=== PATIENT | female | born 1955 | race Caucasian/White ===

== ENCOUNTER → 2016-05-02 | Outpatient (CLI) | payer BC ==
--- NOTE | 2016-05-03 11:13 | USB ---
Reason for exam: follow-up at short interval from prior study. History: Patient had first child at age 33. Family history of premenopausal breast cancer in sister at age 50. Physical Findings: Nurse Summary: bilateral nodularity, all soft, nodular, movable (nurse ts). US Breast RT Right breast ultrasound including all four quadrants, the retroareolar region and axilla demonstrates a 4 x 3 x 4mm oval, cystic lesion at 10 o'clock and a 3 x 3 x 5mm oval, cystic lesion at 10 o'clock. These results were verbally communicated with the patient and result sheet given to the patient on 05/02/16. ASSESSMENT: Benign, BI-RAD 2 RECOMMENDATION: Follow-up diagnostic mammogram of both breasts in 8 months. Ultrasound of the right breast in 8 months. Back on schedule for December 2016.
== END | disposition home or self-care (01) ==
LOC: RADUSWWP 15:32
PROVIDERS: ATTEND Obstetrics & Gynecology
DX: R92.8 Other abnormal and inconclusive findings on diagnostic imaging of breast (principal)

== ENCOUNTER → 2016-11-11 | Outpatient (CLI) | payer BC ==
--- NOTE | 2016-11-11 23:48 | MR ---
EXAMINATION TYPE: MR brain wo/w con DATE OF EXAM: 11/11/2016 COMPARISON: 10/19/2012 HISTORY: F/U MS and Meningioma TECHNIQUE: Multiplanar, multisequence images of the brain and brainstem is performed without and with IV contras t, utilizing 7.5 mL intravenous Gadavist . FINDINGS: Ventricles have normal size. There is no mass effect nor midline shift. There is no sign of intracran ial hemorrhage. There is a 1 cm focus of increased signal in the anterior left internal capsule on th e T2 and FLAIR images. There is a 1.4 cm somewhat rounded area of intermediate signal in the right la teral aspect of the sylvian fissure. This appears as an extra-axial mass. This is isointense on T2 im ages and has slight increased signal on the FLAIR images. Contrast images show a rounded 10 mm area o f enhancement associated with the mass. There is no edema in the cerebral cortex adjacent to the mass . There are numerous high signal white matter foci in the parietal lobes that measure up to 9 mm on the T2 and FLAIR images. The total number is approximately 20. There are 8 mm high signal discrete foci in the white matter medial anterior right temporal lobe and the anterior aspect left temporal lobe. T here is a subtle 4 mm focus of increased signal in the anterior right side of the medulla. There is a 3 mm focus of increased signal in the right cerebral peduncle. These lesions show no pathologic enha ncement. IMPRESSION: 10 mm enhancing mass in the lateral right sylvian fissure consistent with meningioma that is unchanged compared to old exam. Numerous white matter high signal nonenhancing foci consistent with demyelinating disease that appear unchanged compared to old exam.
== END ==
LOC: RADMRIMAIN 17:18
PROVIDERS: ATTEND Psychiatry & Neurology Neurology
DX: G93.9 Disorder of brain, unspecified (principal); R90.89 Other abnormal findings on diagnostic imaging of central nervous system
CPT/HCPCS: 70553; A9581

== ENCOUNTER → 2018-01-31 | Outpatient (CLI) | payer BC ==
--- NOTE | 2018-01-31 15:16 | BD ---
EXAMINATION TYPE: Axial Bone Density DATE OF EXAM: 01/31/2018 COMPARISON: 2009 CLINICAL HISTORY: osteoporosis Height: 5'4 1/2 Weight: 156 FRAX RISK QUESTIONS: Secondary Osteoporosis: RISK FACTORS HISTORY OF: Family History of Osteoporosis: y Postmenopausal woman: y MEDICATIONS: Additional Medications: Additional History: EXAM MEASUREMENTS: Bone mineral densitometry was performed using the [employer] System. Bone mineral density as measured about the Lumbar spine is: ----- L1-L4(G/cm2): 0.883 T Score Values are as follows: ----- L2: -2.5 ----- L3: -1.8 ----- L4: -2.5 ----- L1-L4: -2.5 Bone mineral density has: Increased 0.5% since study of: 12/15/2015 Bone mineral density about the R hip (g/cm2): 0.835 Bone mineral density about the L hip (g/cm2): 0.740 T Score values are as follows: -----R Neck: -1.5 -----L Neck: -2.1 -----R Total: -1.7 -----L Total: -2.4 Bone mineral density has: Decreased -10.6% since study of: 12/15/2015 IMPRESSION: 1. Osteoporosis of the lumbar spine. 2. Osteopenia bilateral femora. NOTE: T-SCORE=SD OF THE YOUNG ADULT MEAN.
--- NOTE | 2018-02-02 12:28 | MM ---
Reason for exam: screening (asymptomatic). Last mammogram was performed 1 year and 1 month ago. History: Patient is postmenopausal and had first child at age 33. Family history of premenopausal breast cancer in sister at age 50. Took progesterone for 4 years. Physical Findings: A clinical breast exam by your physician is recommended on an annual basis and results should be correlated with mammographic findings. MG Screening Mammo w CAD Bilateral CC and MLO view(s) were taken. XCCL view(s) were taken of the right breast. Prior study comparison: December 30, 2016, bilateral MG diagnostic mammo w CAD GRETCHEN. December 15, 2015, bilateral MG 3d screening mammo w/cad. The breast tissue is heterogeneously dense. This may lower the sensitivity of mammography. No suspicious abnormality in the left breast. Focal asymmetry of the right lower outer quadrant 3.5-4.5cm from nipple. ASSESSMENT: Incomplete: need additional imaging evaluation, BI-RAD 0 RECOMMENDATION: Special view mammogram of the right breast. If lesion persists on supplemental views, image directed ultrasound is recommended. [facility] will attempt to contact patient to return for supplemental views and ultrasound if indicated.
== END | disposition home or self-care (01) ==
LOC: RADMAMWWP 14:33
PROVIDERS: ATTEND Obstetrics & Gynecology
DX: Z12.31 Encounter for screening mammogram for malignant neoplasm of breast (principal); M85.852 Other specified disorders of bone density and structure, left thigh; M85.851 Other specified disorders of bone density and structure, right thigh; M85.88 Other specified disorders of bone density and structure, other site
CPT/HCPCS: 77067; 77080

== ENCOUNTER → 2018-02-28 | Outpatient (CLI) | payer BC ==
--- NOTE | 2018-03-01 11:52 | MM ---
Reason for exam: additional evaluation requested from abnormal screening. Last mammogram was performed 1 month ago. History: Patient is postmenopausal and had first child at age 33. Family history of premenopausal breast cancer in sister at age 50. Took progesterone for 4 months. Physical Findings: Nurse did not find any significant physical abnormalities on exam. MG 3D Work Up W/Cad RT Spot compression CC, spot compression MLO, and ML view(s) were taken of the right breast. Prior study comparison: January 31, 2018, bilateral MG screening mammo w CAD. December 30, 2016, bilateral MG diagnostic mammo w CAD GRETCHEN. The breast tissue is heterogeneously dense. This may lower the sensitivity of mammography. No distinct lesion persists on additional views. These results were verbally communicated with the patient and result sheet given to the patient on 02/28/18. ASSESSMENT: Negative, BI-RAD 1 RECOMMENDATION: Return to routine screening mammogram schedule for both breasts.
== END | disposition home or self-care (01) ==
LOC: RADMAMWWP 06:57
PROVIDERS: ATTEND Obstetrics & Gynecology
DX: R92.8 Other abnormal and inconclusive findings on diagnostic imaging of breast (principal)
CPT/HCPCS: 77061; 77065

== ENCOUNTER → 2019-02-11 | Outpatient (CLI) | payer BC ==
--- NOTE | 2019-02-11 11:26 | MM ---
Reason for exam: screening (asymptomatic). Last mammogram was performed 11 months ago. History: Patient is postmenopausal and had first child at age 33. Family history of premenopausal breast cancer in sister at age 50. Took progesterone for 4 months. Physical Findings: A clinical breast exam by your physician is recommended on an annual basis and results should be correlated with mammographic findings. MG 3D Screening Mammo W/Cad Bilateral CC and MLO view(s) were taken. Prior study comparison: February 28, 2018, right breast MG 3d work up w/cad RT. January 31, 2018, bilateral MG screening mammo w CAD. The breast tissue is heterogeneously dense. This may lower the sensitivity of mammography. Benign appearing bilateral calcifications. No suspicious abnormality. No significant changes when compared with prior studies. ASSESSMENT: Benign, BI-RAD 2 RECOMMENDATION: Routine screening mammogram of both breasts in 1 year.
== END | disposition home or self-care (01) ==
LOC: RADMAMWWP 07:21
PROVIDERS: ATTEND Obstetrics & Gynecology
DX: Z12.31 Encounter for screening mammogram for malignant neoplasm of breast (principal)
CPT/HCPCS: 77063; 77067

== ENCOUNTER → 2019-12-06 | Outpatient (CLI) | payer BC ==
--- NOTE | 2019-12-08 11:28 | MR ---
EXAMINATION TYPE: MR brain wo/w con DATE OF EXAM: 12/06/2019 COMPARISON: 11/11/2016 HISTORY: Meningioma/Demyelinating disease follow up comparison to MRI 11-11-16 CONTRAST: Performed utilizing 7 mL intravenous Gadavist gadolinium contrast. TECHNIQUE: Multiplanar, multisequence imaging of the brain is performed on a 3.0 Anny magnet. Demye linating disease protocol with additional Sagittal Flair sequence is performed. Study is performed wi thin 24 hours of arrival to the hospital. FINDINGS: T2 White Matter Lesions Present : Yes Approximate Number of Lesions: Multiple scattered Locations Identified : Cerebellum, goldstein radiata, centrum semiovale, periventricular white matter Size of Largest Lesion(s): 1. 0.7 x 0.9 x 1.0 cm, subcortical U fibers left centrum semiovale Sequence 501 Image 26 (axial) and Sequence 601 Image 13 (sagittal). 2. 1.1 x 1.2 x 0.7 cm. Location: Right occipital lobe subcortical white matter Sequence 501 Image 2 0 (axial) and Sequence 601 Image 24 (sagittal). Enhancing Lesion(s) Present: Yes 1. Right parietal lobe at the sylvian fissure measuring 1.4 x 2.6 x 1.9 cm. Previous measurement 1.3 x 2.2 x 1.7 cm. No significant mass effect or edema in the adjacent brain. Change from Prior: Minimal enlargement. 2. Inferior right frontal lobe measuring 1.4 x 1.0 x 0.5 cm. This is enlarging from the comparison st udy. Significant mass effect or edema in the adjacent brain is not evident. Diffusion-weighted imaging is performed. No abnormal hyperintensity is present to suggest an acute i ntracranial infarct or acute ischemic change. Minimal increased signal is within the right sylvian f issure meningioma. Ventricles and sulci are appropriate for the patient age. There are no abnormal extra-axial fluid collections. The ventricular system and cisternal spaces are normal in size and appearance. The brain volume is age appropriate. The craniocervical junction boom ears within normal limits. The dural venous sinuses appear patent. There is bilateral mucosal thickening through the ethmoid air cells. Some mucosal thickening is not e xcluded in the frontal sinuses. Remaining paranasal sinuses mastoid air cells are clear. IMPRESSION: 1. Multiple white matter changes greater than 20 on each side are nonspecific. Multiple sclerosis is likely within the differential. Reference lesions discussed above. 2. White matter changes within the cerebellum may be increasing. Reference lesions may have minimal i ncrease in size. 3. Extra-axial enhancing lesion suspicious for meningioma have mild increase on the right sylvian fis sure region and it is increased in size along the inferior right frontal lobe.
== END | disposition home or self-care (01) ==
LOC: RADMRIMAIN 18:37
PROVIDERS: ATTEND Psychiatry & Neurology Neurology
DX: R90.82 White matter disease, unspecified (principal); G93.89 Other specified disorders of brain
CPT/HCPCS: 70553; A9585

== ENCOUNTER → 2020-04-24 | Outpatient (CLI) | payer BC ==
--- NOTE | 2020-04-24 14:33 | BD ---
EXAMINATION TYPE: Axial Bone Density DATE OF EXAM: 04/24/2020 COMPARISON: NONE CLINICAL HISTORY: Height: 64 Weight: 158.7 FRAX RISK QUESTIONS: Alcohol (3 or more units per day): no Family History (Parent hip fracture): no Glucocorticoids (More than 3mos): no (Ex: prednisone, prednisolone, methylprednisolone, dexamethasone, and hydrocortisone). History of Fracture in Adulthood: yes Secondary Osteoporosis: 1. Type 1 Diabetes: no 2. Hyperthyroidism: no 3. Menopause before 45: no 4. Malnutrition: no 5. Chronic liver disease: no Rheumatoid Arthritis: no Current Tobacco Use: no RISK FACTORS HISTORY OF: History of Wrist Fracture: left arm When: Family History of Osteoporosis: yes Active: yes Diet low in dairy products/other sources of calcium: yes Postmenopausal woman: age 59 Lost more than 2 inches in height since high school: no MEDICATIONS: none Additional History: EXAM MEASUREMENTS: Bone mineral densitometry was performed using the [employer] System. Bone mineral density as measured about the Lumbar spine is: ----- L1-L4(G/cm2): 0.874 T Score Values are as follows: ----- L2: -3.4 ----- L3: -2.6 ----- L4: -2.4 ----- L1-L4: -2.6 Bone mineral density has: decreased -0.2 % since study of: 01.31.2018 Bone mineral density about the R hip (g/cm2): 0.843 Bone mineral density about the L hip (g/cm2): 0.757 T Score values are as follows: -----R Neck: -1.4 -----L Neck: -2.0 -----R Total: -1.6 -----L Total: -2.0 Bone mineral density has: increased 3.9 % since study of: 01.21.2018 IMPRESSION: Osteoporosis (T Score less than -2.5). There is increased fracture risk and therapy is usually indicated based on age. Re-Screen 1-2 years. NOTE: T-SCORE=SD OF THE YOUNG ADULT MEAN.
--- NOTE | 2020-04-27 11:48 | MM ---
Reason for exam: screening (asymptomatic). Last mammogram was performed 1 year and 2 months ago. History: Patient is postmenopausal and had first child at age 33. Family history of premenopausal breast cancer in sister at age 50. Took progesterone for 4 months. Physical Findings: A clinical breast exam by your physician is recommended on an annual basis and results should be correlated with mammographic findings. MG 3D Screening Mammo W/Cad Bilateral CC and MLO view(s) were taken. Prior study comparison: February 11, 2019, bilateral MG 3d screening mammo w/cad. January 31, 2018, bilateral MG screening mammo w CAD. December 30, 2016, bilateral MG diagnostic mammo w CAD GRETCHEN. The breast tissue is heterogeneously dense. This may lower the sensitivity of mammography. No significant changes when compared with prior studies. ASSESSMENT: Negative, BI-RAD 1 RECOMMENDATION: Routine screening mammogram of both breasts in 1 year.
== END | disposition home or self-care (01) ==
LOC: RADBDWWP 08:41
PROVIDERS: ATTEND Obstetrics & Gynecology
DX: Z12.31 Encounter for screening mammogram for malignant neoplasm of breast (principal); M81.0 Age-related osteoporosis without current pathological fracture
CPT/HCPCS: 77063; 77067; 77080

== ENCOUNTER → 2020-06-22 | Outpatient (CLI) | payer BC ==
--- NOTE | 2020-06-23 05:01 | MR ---
EXAMINATION TYPE: MR brain wo/w con DATE OF EXAM: 06/22/2020 COMPARISON: December 06, 2019 HISTORY: Benign neoplasm of cerebral meninges CONTRAST: Standard multiplanar, multisequence MRI departmental protocol utilizing 7 mL intravenous Gadavist yvonne olinium contrast. There is mild cerebral atrophy appropriate for age. There is slight thinning of the posterior corpus callosum. Sella turcica appears normal. Diffusion images show no evidence of acute infarct. The cereb ellum is intact. There is no evidence of posterior fossa mass. There is rounded 1.4 cm enhancing mass in the midline adjacent to the cribriform plate. This is sessi le and measures only 4 to 5 mm in thickness. There is broad contact with the cribriform plate and con sistent with a meningioma. Unchanged. There is a 13 x 20 mm extra-axial enhancing mass in the anterior right sylvian fissure and has large surface contact with the temporal bone and also consistent with meningioma. Unchanged. The brainstem is intact. On the T2 and FLAIR images there are multiple foci of increased signal in th e white matter in both cerebral hemispheres. Total number is approximately 30 and these measure up to 10 mm. IMPRESSION: Extra-axial enhancing masses without change compared to previous exam and consistent with meningioma. Numerous white matter lesions in both cerebral hemispheres consistent with chronic small vessel ische silas or demyelinating disease without change. No evidence of cortical infarct.
== END | disposition home or self-care (01) ==
LOC: RADMRIMAIN 18:37
PROVIDERS: ATTEND Neurological Surgery
DX: D32.0 Benign neoplasm of cerebral meninges (principal); R90.82 White matter disease, unspecified
CPT/HCPCS: 70553; A9585

== ENCOUNTER → 2020-12-28 | Outpatient (CLI) | payer BC ==
--- NOTE | 2020-12-28 13:15 | MR ---
EXAMINATION TYPE: MR brain wo/w con DATE OF EXAM: 12/28/2020 COMPARISON: MR brain 06/22/2020 HISTORY: Benign neoplasm of cerebral meninges TECHNIQUE: Multiplanar, multisequence images of the brain and brainstem is performed without and with IV contras t, utilizing 7 mL intravenous Gadavist . FINDINGS: Diffusion weighted images demonstrate no evidence of a recent infarct or other diffusion ab normality. There is no extra-axial fluid collection or significant change in white matter signal abn ormality, subcortical, pericallosal, periventricular and scattered hyperintensities are again noted o n inversion recovery T2-weighted sequences. Isointense focus on T2-weighted and T1 images along the r ight frontal lobe which is dural based and shows some local mass effect, intense enhancement followin g contrast administration is again noted. The abnormal enhancement along the anterior aspect of the middle cranial fossa on the right, isointense T2 and T1 appearance is again seen and shows a similar appearance. The ventricular system and cisternal spaces are normal in size and appearance. The brain volume is age appropriate. Midline structures demonstrate normal morphology. The craniocervical junction appears within normal limits. Post contrast images demonstrate stable abnormal enhancement. The dural venous sinuses appea r patent. The visualized sinuses are clear and the globes are intact. IMPRESSION: Stable areas of abnormal enhancement, findings consistent with meningiomas. Nonspecific w dontrell matter demyelination, consider multiple sclerosis, chronic small vessel ischemic changes, hypert ension, vasculitis, Lyme disease
== END | disposition home or self-care (01) ==
LOC: RADMRIMAIN 09:37
PROVIDERS: ATTEND Neurological Surgery
DX: D32.0 Benign neoplasm of cerebral meninges (principal)
CPT/HCPCS: 70553; A9585

== ENCOUNTER → 2021-08-05 | Outpatient (CLI) | payer BC ==
[2021-08-05 15:15] LABS: Basophils # (A) 0.2 k/uL (0-0.2); Basophils % (A) 2 %; Eosinophils # (A) 0.2 k/uL (0-0.7); Eosinophils % (A) 2 %; HCT 45.5 % (34.0-46.0); HGB 13.9 gm/dL (11.4-16.0); Lymphocytes # (A) 2.5 k/uL (1.0-4.8); Lymphocytes % (A) 30 %; MCH 28.6 pg (25.0-35.0); MCHC 30.6 g/dL (31.0-37.0); MCV 93.2 fL (80.0-100.0); Mean Platelet Volume 7.8; Monocytes # (A) 0.4 k/uL (0-1.0); Monocytes % (A) 5 %; Neutrophils % (A) 60 %; Platelet Count 289 k/uL (150-450); RBC 4.88 m/uL (3.80-5.40); RDW 12.9 % (11.5-15.5); WBC 8.4 k/uL (3.8-10.6)
[2021-08-05 16:07] LABS: ALT 27 U/L (4-34); AST 30 U/L (14-36); African American GFR (CKD) >90 (>60 ml/min/1.73 sqM); Albumin 4.5 g/dL (3.5-5.0); Albumin/Globulin Ratio 1.5; Alkaline Phosphatase 68 U/L (38-126); Anion Gap 6 mmol/L; Blood Urea Nitrogen 19 mg/dL (7-17); Calcium 9.6 mg/dL (8.4-10.2); Carbon Dioxide 28 mmol/L (22-30); Chloride 105 mmol/L (98-107); Globulin 3.1 g/dL; Glucose 87 mg/dL (74-99); Non-African American GFR(CKD) 87 (>60 ml/min/1.73 sqM); Sodium 139 mmol/L (137-145); Total Bilirubin 0.3 mg/dL (0.2-1.3); Total Protein 7.6 g/dL (6.3-8.2)
--- NOTE | 2021-08-05 16:45 | CT ---
EXAMINATION TYPE: CT abdomen pelvis w con CT DLP: 649.6 mGycm, Automated exposure control for dose reduction was used. DATE OF EXAM: 08/05/2021 4:30 PM COMPARISON: None. CLINICAL INDICATION:Female, 66 years old with history of R19.00; RUQ pain, distention TECHNIQUE: Standard CT of the abdomen and pelvis following the administration of 100 cc of Isovue 3 00 IV contrast material and oral contrast. Coronal and sagittal reformats were performed. FINDINGS: LOWER CHEST: Posterior dependent subsegmental atelectasis is noted. ABDOMEN LIVER: Unremarkable GALLBLADDER AND BILE DUCTS: Unremarkable. PANCREAS: Unremarkable. SPLEEN: Unremarkable. ADRENAL GLANDS: Unremarkable. KIDNEYS AND URETERS: No evidence of hydronephrosis or renal calculus. The ureters are unremarkable. PELVIS BLADDER: Unremarkable REPRODUCTIVE: Unremarkable. ABDOMEN & PELVIS STOMACH AND BOWEL: There is a moderate to large stool burden throughout the colon. There is redundant colon throughout the abdomen.. No evidence of bowel obstruction. PERITONEUM: No evidence of pneumoperitoneum or free fluid. VASCULATURE: No evidence of aortic aneurysm. MUSCULOSKELETAL: Mild disc degeneration changes are present throughout the thoracolumbar spine.. LYMPH NODES: No gross evidence for lymphadenopathy. SOFT TISSUE/ABDOMINAL WALL: Unremarkable IMPRESSION: 1. No evidence for acute right upper quadrant process. 2. Moderate to large stool burden throughout the colon.
== END | disposition home or self-care (01) ==
LOC: RADCTMAIN 14:29
PROVIDERS: ATTEND Family Medicine
DX: R19.00 Intra-abdominal and pelvic swelling, mass and lump, unspecified site (principal)
CPT/HCPCS: 83880; 80053; 85025; 74177; 36415; Q9967

== ENCOUNTER → 2022-05-30 | Outpatient (CLI) | payer MEDICARE ==
--- NOTE | 2022-05-30 22:45 | MR ---
EXAMINATION TYPE: MR brain wo/w con DATE OF EXAM: 05/30/2022 COMPARISON: Prior MRI brain December 28, 2020 HISTORY: FOLLOW UP ON LESIONS, MENINGIOMAS TECHNIQUE: Multiplanar, multisequence images of the brain and brainstem is performed without and with IV contras t, utilizing 7 mL intravenous Gadavist . FINDINGS: Diffusion weighted images demonstrate no evidence of a recent infarct or other diffusion ab normality. There is mild ventricular and sulcal prominence. There are multifocal lesions of T2 hyperi ntensity seen destructive superficial, deep, and periventricular white matter. Approximately 40-50 sc attered lesions are redemonstrated. Lesions are nonspecific in appearance and distribution. Midline structures redemonstrate normal morphology. The craniocervical junction appears within dl l limits. Post contrast images redemonstrate stable 2.5 x 1.4 cm inferior right frontal temporal homogeneously enhancing extra-axial mass or meningioma axial image 16 grossly stable in size and appearance from mo st recent prior MRI with enhancing dural tail. There is 1.7 x 1.4 cm inferior right frontal homogeneo us enhancing mass or meningioma axial image 13 grossly stable in size and appearance from most recent MRI. Patchy fluid signal left mastoid air cells is now seen. Mild mucosal thickening involving ethmoid sin uses bilaterally. Globes are intact bilaterally. IMPRESSION: There are 2 stable homogeneous enhancing masses or meningiomas noted as detailed above. T here is mild diffuse age-related cerebral atrophy and moderate to borderline advanced nonspecific whi te matter changes favor product of proximal vessel ischemic change redemonstrated. No significant yrn nge in either finding from most recent MRI.
== END | disposition home or self-care (01) ==
LOC: RADMRIMAIN 16:29
PROVIDERS: ATTEND Neurological Surgery
DX: D32.0 Benign neoplasm of cerebral meninges (principal); G31.1 Senile degeneration of brain, not elsewhere classified
CPT/HCPCS: 70553; A9585

== ENCOUNTER → 2023-02-20 | Outpatient (CLI) | payer MEDICARE ==
--- NOTE | 2023-02-21 21:24 | MM ---
Reason for Exam: Screening (asymptomatic). Last mammogram was performed 1 year(s) and 7 month(s) ago. Patient History: Menarche at age 15. First Full-Term at age 33. Late child-bearing (after 30). Postmenopausal. Progesterone for 4 months. Sister had breast cancer, age 50. Risk Values: Clary 5 year model risk: 3.3%. NCI Lifetime model risk: 12.3%. Prior Study Comparison: 02/11/2019 Bilateral Screening Mammogram, [facility]. 04/24/2020 Bilateral Screening Mammogram, [facility]. 07/22/2021 Bilateral MG 3D screening mammo w/cad, [facility]. Tissue Density: The breast tissue is heterogeneously dense. This may lower the sensitivity of mammography. Findings: Analyzed By CAD. Unchanged areas of bilateral asymmetric densities. There is no suspicious group of microcalcifications or new suspicious mass in either breast. Overall Assessment: Benign, BI-RAD 2 Management: Screening Mammogram of both breasts in 1 year. See note below in regards to patient's increased 5 year Clary score. Patient should continue monthly self-breast exams. A clinical breast exam by your physician is recommended on an annual basis. This exam should not preclude additional follow-up of suspicious palpable abnormalities. Note on Clary scores and lifetime risk: 1. A Clary score greater than 3% is considered moderate risk. If this is the case, consider specialist referral to assess eligibility for a risk reducing agent. 2. If overall lifetime risk for the development of breast cancer is 20% or higher, the patient may qualify for future screening with alternating mammogram and breast MRI. Electronically signed and approved by: Yaneli Ortega M.D. Radiologist
== END | disposition home or self-care (01) ==
LOC: RADMAMWWP 07:20
PROVIDERS: ATTEND Family Medicine
DX: Z12.31 Encounter for screening mammogram for malignant neoplasm of breast (principal); Z80.3 Family history of malignant neoplasm of breast; Z78.0 Asymptomatic menopausal state
CPT/HCPCS: 77063; 77067

== ENCOUNTER → 2023-09-22 | Outpatient (CLI) | payer MEDICARE ==
--- NOTE | 2023-09-22 09:30 | MR ---
INDICATION: Patient age:Female; 68 years old; Reason for study: D32.0 BENIGN NEOPLASM OF CEREBRAL MENINGES; [facility]. COMPARISON: Brain 05/30/2022, 12/28/2020, 06/22/2020. TECHNIQUE: Multi planar, multi sequence imaging was performed through the brain before and after the uneventful administration of 7.5 mL of Gadavist intravenously. FINDINGS: The summers-white junctions, ventricular system, basal cisterns appear unremarkable. Diffusion-weighted imaging shows no evidence of restricted diffusion to suggest acute/subacute infarct. Mild cerebral vo lume loss. Intracranial arterial flow voids are maintained. Midline structures show no abnormality. M ultifocal T2/FLAIR hyperintense/T1 hypointense lesions seen within the superficial, deep, periventric ular white matter. Approximately 40-50 scattered lesions redemonstrated with no corresponding enhance ment. They are nonspecific in appearance and distribution. The susceptibility weighted images do not reveal any evidence for micro-hemorrhage. Redemonstration of a stable 2.5 x 1.4 cm inferior right fro ntotemporal homogeneous enhancing extra-axial mass or meningioma (series 702, image 16). Stable in si ze and appearance from most recent prior MRI with enhancing dural tail. Additional 1.8 x 1.5 cm infer ior right frontal homogeneous enhancing mass or meningioma identified and stable in size and appearan ce of most recent MRI (series 702, image 13). The bone marrow signal is within normal limits. Minimal mucosal thickening of the ethmoid sinuses. T he remaining paranasal sinuses and mastoid air cells are clear. The globes are unremarkable. IMPRESSION: 1. There are 2 stable homogeneous extra-axial enhancing masses identified most consistent with menin giomas. 2. No evidence of acute/subacute infarct. 3. Similar nonspecific white matter changes, likely related to small vessel ischemic disease versus other etiologies.
== END | disposition home or self-care (01) ==
LOC: RADMRIMAIN 07:07
PROVIDERS: ATTEND Neurological Surgery
DX: D32.0 Benign neoplasm of cerebral meninges (principal)
CPT/HCPCS: 70553; A9585

== ENCOUNTER → 2024-02-22 | Outpatient (CLI) | payer MEDICARE ==
--- NOTE | 2024-02-26 18:02 | MM ---
Reason for Exam: Screening (asymptomatic). Last screening mammogram was performed 12 month(s) ago. Patient History: Menarche at age 15. First Full-Term at age 33. Late child-bearing (after 30). Postmenopausal. Progesterone for 4 months. Sister had breast cancer, age 50. Risk Values: Clary 5 year model risk: 3.4%. NCI Lifetime model risk: 11.8%. Prior Study Comparison: 04/24/2020 Bilateral Screening Mammogram, [facility]. 07/22/2021 Bilateral MG 3D screening mammo w/cad, [facility]. 02/20/2023 Bilateral MG 3D screening mammo w/cad, [facility]. Tissue Density: The breasts are heterogeneously dense, which may obscure small masses. Findings: Analyzed By CAD. Irregular asymmetric density superior right MLO view appears more pronounced and incompletely disperses on 3-D images. This may represent superimposition shadow but further evaluation is recommended. Otherwise, no significant change. Overall Assessment: Incomplete: need additional imaging evaluation, BI-RAD 0 Management: Special View Mammogram of the right breast. Diagnostic Breast Ultrasound of the right breast. [facility] will attempt to contact patient to return for supplemental views and ultrasound if indicated. [facility], , 02/26/2024 5:59 PM. Electronically signed and approved by: Yaneli Ortega M.D. Radiologist
== END | disposition home or self-care (01) ==
LOC: RADMAMWWP 07:35
PROVIDERS: ATTEND Family Medicine
DX: Z12.31 Encounter for screening mammogram for malignant neoplasm of breast (principal); Z78.0 Asymptomatic menopausal state; Z80.3 Family history of malignant neoplasm of breast; R92.333 Mammographic heterogeneous density, bilateral breasts
CPT/HCPCS: 77063; 77067

== ENCOUNTER → 2024-03-15 | Outpatient (CLI) | payer MEDICARE ==
--- NOTE | 2024-03-15 08:57 | MM ---
Reason for Exam: Additional evaluation requested from abnormal screening. Last screening mammogram was performed less than 1 month ago. Patient History: Menarche at age 15. First Full-Term at age 33. Late child-bearing (after 32). Postmenopausal. Progesterone for 4 months. Sister had breast cancer, age 50. Risk Values: Clary 5 year model risk: 3.4%. NCI Lifetime model risk: 11.8%. Tissue Density: Right: There are scattered areas of fibroglandular density. Findings: Analyzed By CAD. Area of concern/asymmetry compresses out on spot compression imaging. No suspicious masses, calcifications or distortions. Overall Assessment: Benign, BI-RAD 2 Management: Screening Mammogram of the left breast in 1 year. Results were given to the patient verbally at the time of exam. Patient should continue monthly self-breast exams. A clinical breast exam by your physician is recommended on an annual basis. This exam should not preclude additional follow-up of suspicious palpable abnormalities. Note on Clary scores and lifetime risk: 1. A Clary score greater than 3% is considered moderate risk. If this is the case, consider specialist referral to assess eligibility for a risk reducing agent. 2. If overall lifetime risk for the development of breast cancer is 20% or higher, the patient may qualify for future screening with alternating mammogram and breast MRI. [facility], , 03/15/2024 8:45 AM. Electronically signed and approved by: Manan Parker DO
== END | disposition home or self-care (01) ==
LOC: RADMAMWWP 08:22
PROVIDERS: ATTEND Family Medicine
DX: R92.8 Other abnormal and inconclusive findings on diagnostic imaging of breast (principal); Z78.0 Asymptomatic menopausal state; Z80.3 Family history of malignant neoplasm of breast; R92.321 Mammographic fibroglandular density, right breast
CPT/HCPCS: 77065; G0279; 77061